=== PATIENT | female | born 1960 | race Caucasian/White ===

== ENCOUNTER → 2019-11-02 | Outpatient (CLI) | payer BC | LOC: MC.RAD 08-31 16:00 | DX: Z12.31 Encounter for screening mammogram for malignant neoplasm of breast (principal) ==

== ENCOUNTER → 2020-05-09 | Outpatient (CLI) | payer BC | LOC: MHCPAIN 10:40 | DX: M47.817 Spondylosis without myelopathy or radiculopathy, lumbosacral region (principal); M54.5 Low back pain; M53.3 Sacrococcygeal disorders, not elsewhere classified; G89.29 Other chronic pain | CPT/HCPCS: G0463 ==

== ENCOUNTER → 2020-05-18 | Outpatient (CLI) | payer BC | LOC: MHCPAIN 09:03 | DX: M47.817 Spondylosis without myelopathy or radiculopathy, lumbosacral region (principal); M54.5 Low back pain ==

== ENCOUNTER → 2020-05-30 | Outpatient (CLI) | payer BC | LOC: MHCPAIN 10:36 | DX: M53.3 Sacrococcygeal disorders, not elsewhere classified (principal); M25.552 Pain in left hip; M54.5 Low back pain; M96.1 Postlaminectomy syndrome, not elsewhere classified; G89.29 Other chronic pain | CPT/HCPCS: G0463 ==

== ENCOUNTER → 2020-11-09 | Outpatient (CLI) | payer BC | LOC: MC.RAD 12:58 | DX: Z12.31 Encounter for screening mammogram for malignant neoplasm of breast (principal) ==

== ENCOUNTER → 2021-10-11 | Outpatient (CLI) | payer BC | LOC: COL.RAD 07:32 | DX: K21.9 Gastro-esophageal reflux disease without esophagitis (principal); R09.89 Other specified symptoms and signs involving the circulatory and respiratory systems; R68.81 Early satiety | CPT/HCPCS: A9541 ==

== ENCOUNTER → 2021-12-28 | Outpatient (CLI) | payer BC | LOC: MC.RAD 12-05 13:00 | DX: Z12.31 Encounter for screening mammogram for malignant neoplasm of breast (principal) ==